=== PATIENT | female | born 1975 | race Caucasian/White ===

== ENCOUNTER 2017-08-03 13:04 | Emergency (ER) | payer OTHER, MEDICAID ==
[~2017-08-03] VITALS: Ht 170.2 cm; Wt 118.0 kg
[2017-08-03] MEDS ORDERED: IPRATROPIUM/ALBUTEROL 0.5-3(2.5)MG/3ML NEB HHN ONE (14:15)
[2017-08-03] MEDS ORDERED: PREDNISONE 20MG TABLET PO ONE (14:15)
[2017-08-03 14:23] LABS: EOSINOPHILS % 4.7 % (0.0-5.0); HEMOGLOBIN. 12.5 g/dL (12.0-16.0); LYMPHOCYTES % 28.3 % (20.0-50.0); MEAN CORPUSCULAR HEMOGLOBIN 26.5 pg (28.0-32.0); MEAN CORPUSCULAR VOLUME 80.5 fL (81.0-99.0); MEAN PLATELET VOLUME 7.8 fl (7.4-10.4); MONOCYTES % 7.2 % (2.0-8.0); NEUTROPHILS % 58.8 % (40.0-76.0); PLATELET 311 x1000/uL (130-400); RED BLOOD CELL COUNT 4.72 mill/uL (4.2-5.4); RED CELL DISTRIBUTION WIDTH 15.9 % (11.6-14.6)
[2017-08-03 14:28] LABS: CHLORIDE 108 mEq/L (98-107)
[2017-08-03] MEDS ORDERED: ALBUTEROL (0.083%) 2.5MG/3ML NEB HHN STA (15:19)
[2017-08-03] MEDS ORDERED: PREDNISONE 20MG TABLET PO STA (15:19)
[2017-08-03 18:00] VITALS: BP 112/68
== END 2017-08-03 18:09 | disposition home or self-care (01) ==
LOC: ER 13:04
DX: J45.901 Unspecified asthma with (acute) exacerbation (principal); E11.9 Type 2 diabetes mellitus without complications
CPT/HCPCS: 36415; 71045; 80053; 81025; 85025; 94640; 99285; J7512; J7611; J7620